=== PATIENT | female | born 1995 ===

== ENCOUNTER 2018-06-09 11:13 | Emergency (ER) | payer OTHER ==
[2018-06-09 12:30] VITALS: BP 104/69
--- NOTE | 2018-06-09 13:22 | UC ---
Lower Extremity/Ankle HPI - HPI Summary HPI Summary: pt was playing soccer yestereday and twisted L knee, painful and becoming more swollen today. is ambulatory but painful - History of Current Complaint Chief Complaint: UCLowerExtremity Stated Complaint: L KNEE INJURY Time Seen by Provider: 06/09/18 13:16 Hx Obtained From: Patient Hx Last Menstrual Period: one week ago ?: No Onset/Duration: Sudden Onset Severity Initially: Moderate Severity Currently: Moderate Pain Intensity: 6 Aggravating Factor(s): Ambulation Alleviating Factor(s): Rest, Elevation Able to Bear Weight: Yes - Allergies/Home Medications Allergies/Adverse Reactions: Allergies Allergy/AdvReac Type Severity Reaction Status Date / Time No Known Allergies Allergy Verified 06/09/18 12:30 Home Medications: Home Medications NK [No Home Medications Reported] 06/09/18 [History Confirmed 06/09/18] PMH/Surg Hx/FS Hx/Imm Hx Previously Healthy: Yes - Surgical History Surgical History: Yes Surgery Procedure, Year, and Place: Jaw - Family History Known Family History: Positive: None Negative: Hypertension, Diabetes - Social History Occupation: Student Lives: With Family Alcohol Use: None Substance Use Type: None Smoking Status (MU): Never Smoked Tobacco Review of Systems Constitutional: Negative Respiratory: Negative Cardiovascular: Negative Musculoskeletal: Other: - L knee pain Neurological: Negative Psychological: Negative Is Patient Immunocompromised?: No All Other Systems Reviewed And Are Negative: Yes Physical Exam Triage Information Reviewed: Yes Appearance: Well-Appearing, No Pain Distress, Well-Nourished Vital Signs: Initial Vital Signs Temp 98.7 F 06/09/18 12:27 Pulse 82 06/09/18 12:27 Resp 18 06/09/18 12:27 BP 104/69 06/09/18 12:27 Pulse Ox 98 06/09/18 12:27 Vital Signs Reviewed: Yes Respiratory Exam: Normal Cardiovascular Exam: Normal Musculoskeletal: Positive: ROM Limited @, Other: - L knee swelling, tenderness with pressure Neurological Exam: Normal Psychological Exam: Normal Skin Exam: Normal Diagnostics - Radiology No standard instances Xray Interpretation: Positive (See Comments) Radiology Interpretation Completed By: Radiologist - L knee effusion Lower Extremity Course/Dx - Differential Dx/Diagnosis Differential Diagnosis/HQI/PQRI: Fracture (Closed), Sprain, Strain Provider Diagnoses: knee effusion Discharge - Sign-Out/Discharge Documenting (check all that apply): Patient Departure All imaging exams completed and their final reports reviewed: Yes - Discharge Plan Condition: Good Disposition: HOME Patient Education Materials: Swollen Knee Joint (ED) [facility] - 3 Days (for recheck) Additional Instructions: wear knee immobilizer everyday until seen at [facility] for recheck this week ibuprofen for pain as directed no sports until cleared by [facility] - Billing Disposition and Condition Condition: GOOD Disposition: Home
--- NOTE | 2018-06-09 14:04 | RAD ---
INDICATION: Left knee pain after a fall playing soccer the previous day COMPARISON: None TECHNIQUE: 4 view radiograph of the left knee. FINDINGS: The visualized bones are well-corticated and properly aligned. The joint spaces are properly maintained. There is a small suprapatellar joint effusion.. There is no acute fracture, dislocation or other focal bony abnormality. IMPRESSION: Small suprapatellar joint effusion in this otherwise nonacute left knee radiograph. If the patient's symptoms persist, follow-up imaging is recommended.
== END 2018-06-09 14:48 | disposition home or self-care (01) ==
LOC: UCEAST 11:13
DX: M25.462 Effusion, left knee (principal)
CPT/HCPCS: 99202; G0463